=== PATIENT | female | born 1940 | race Caucasian/White ===

== ENCOUNTER 2016-09-11 05:57 | Emergency (ER) | payer MEDICARE ==
[~2016-09-11] VITALS: Ht 157.5 cm; Wt 56.8 kg
[~2016-09-11 05:57] MED LIST: ALBU8.5H3 INH; ASPI-664 PO; ESTR1TAB23 PO; LEVE-5 PO; METO-448 PO; MOME0.24 IH; SUMA100T9 PO
[2016-09-11 06:04] VITALS: Ht 157.5 cm; Wt 56.8 kg
[2016-09-11] MEDS ORDERED: SOD CHLORIDE 0.9% 1,000 ML IV STA (06:21)
[2016-09-11] MEDS ORDERED: ONDANSETRON 4 MG INJ IV STA (06:21)
[2016-09-11 06:57] LABS: ADD SCAN DIFF NO
[2016-09-11 07:02] LABS: BASOPHILS % 0.2 % (0.0-2.0); EOSINOPHILS # 0.1 10^3/ul (0.0-0.5); EOSINOPHILS % 0.4 % (0.0-7.0); HEMATOCRIT 35.2 % (37.0-47.0); HEMOGLOBIN 11.4 g/dl (12.0-16.0); LYMPHOCYTES # 0.9 10^3/ul (0.8-2.9); LYMPHOCYTES % 5.9 % (15.0-51.0); MEAN CORPUSCULAR HEMOGLOBIN 27.8 pg (29.0-33.0); MEAN CORPUSCULAR HGB CONC 32.4 g/dl (32.0-37.0); MEAN CORPUSCULAR VOLUME 85.9 fl (82.0-101.0); MONOCYTE # 0.5 10^3/ul (0.3-0.9); MONOCYTES % 3.6 % (0.0-11.0); NEUTROPHIL # 13.1 10^3/ul (1.6-7.5); NEUTROPHILS % 89.4 % (39.0-77.0); PLATELET COUNT 303 10^3/UL (140-415); RED CELL DISTRIBUTION WIDTH 14.1 % (11.5-14.5); WHITE BLOOD COUNT 14.7 10^3/ul (4.8-10.8)
[2016-09-11 07:14] LABS: ALBUMIN 4.2 g/dl (3.3-4.9); INR 0.89; PT RATIO 0.9
[2016-09-11 07:15] LABS: CHLORIDE 101 mmol/L (97-110); PARTIAL THROMBOPLASTIN TIME 27.9 Sec (25.0-35.0); POTASSIUM 3.7 mmol/L (3.5-5.1); SODIUM 138 mmol/L (135-144)
[2016-09-11 07:17] LABS: ALBUMIN/GLOBULIN RATIO 1.13; ANION GAP 13 (8-16); ASPARTATE AMINO TRANSFERASE 26 IU/L (15-46); BILIRUBIN,INDIRECT 0.4 mg/dl (0-1.1); BILIRUBIN,TOTAL 0.4 mg/dl (0.2-1.3); CARBON DIOXIDE 28 mmol/L (21-31); CREATININE 0.74 mg/dl (0.44-1.00); TOTAL PROTEIN 7.9 g/dl (6.1-8.1)
[2016-09-11 07:18] LABS: ALANINE AMINOTRANSFERASE 24 IU/L (13-69); ALKALINE PHOSPHATASE 95 IU/L (42-121); BLOOD UREA NITROGEN 10 mg/dl (7-20); CALCIUM 9.1 mg/dl (8.4-10.2); GLUCOSE 113 mg/dl (70-220)
[2016-09-11 07:37] LABS: TROPONIN-I < 0.012 ng/ml (0.00-0.12)
--- NOTE | 2016-09-11 07:38 | RADRPT ---
PROCEDURE: CT Brain without contrast. CLINICAL INDICATION: Headache TECHNIQUE: Axial images from the skull base through the vertex without IV contrast. Multiplanar r eformatted images were made. Images were reviewed on a PACS workstation. The CTDIvol is 44.99 mGy and the DLP is 720.23 mGycm. One or more of the following dose reduction techniques were used: auto mated exposure control, adjustment of the mA and/or kV according to patient size, or use of iterativ e reconstruction technique. COMPARISON: 01/02/2015 FINDINGS: Minimal chronic microvascular ischemic change is again seen. There is no evidence for acute territo rial infarction or intracranial hemorrhage. No mass or midline shift is seen. No extraaxial fluid collection is seen. The visualized paranasal sinuses and mastoids are clear. IMPRESSION: Stable minimal chronic microvascular ischemic change. RPTAT: HLBE Physician Andrew Date Time Electronically viewed and signed by Nicolette Kenny Physician on 09/11/2016 07:38 HALIMA/
[2016-09-11 07:46] LABS: ADD UMIC YES; URINE BILIRUBIN (Dip) NEGATIVE (NEGATIVE); URINE BLOOD (Dip) TRACE (NEGATIVE); URINE COLOR LT. YELLOW (YELLOW); URINE GLUCOSE (Dip) NEGATIVE (NEGATIVE); URINE KETONES (Dip) NEGATIVE (NEGATIVE); URINE LEUKOCYTE ESTERASE (Dip) 1+ (NEGATIVE); URINE NITRITE (Dip) NEGATIVE (NEGATIVE); URINE TOTAL PROTEIN (Dip) NEGATIVE (NEGATIVE); URINE UROBILINOGEN (Dip) 0.2 E.U./dL (0.1-1.0)
--- NOTE | 2016-09-11 07:47 | RADRPT ---
PROCEDURE: CT of the abdomen and pelvis without contrast CLINICAL INDICATION: Abdominal Pain. TECHNIQUE: Spiral CT images through the abdomen and pelvis without the use of contrast. The admin istered radiation dose is CTDI 7.67 and DLP 423.64. One or more of the following dose reduction kait hniques were used: automated exposure control, adjustment of the mA and/or kV according to patient s ize, or use of iterative reconstruction technique. COMPARISON: 08/02/2013 FINDINGS: Lack of oral and intravenous contrast somewhat limits evaluation. Bronchiectasis and fibrotic rashid nges of the lung bases are again seen. As before, this is most severe in the right middle lobe with some changes are now seen in the lingula as well. These changes may have progressed slightly. 3 m m right lower lobe lung nodule is stable. Calcified right lower lobe granuloma is again seen. Mild ly distended gallbladder. No pleural effusion. Aortic calcification. The liver, spleen, left adrenal, and pancreas are unremarkable in appearance. Tiny calcification of the right adrenal gland is again seen. Right hydronephrosis is less prominent than on the prior st udy. As before, no definite ureter or bladder stone is seen. The right ureter is less dilated than on the prior study with mild proximal dilatation seen. Left renal cortical atrophy is seen. No le ft hydroureter is seen. No stones are seen in the urinary bladder or left ureter. The urinary blad anais is mildly distended. The uterus again appears to be surgically absent. No adnexal mass is seen .. The appendix is not definitely identified but no pericecal inflammatory process is seen. There i s no evidence for bowel obstruction, free air, or abscess. There is no evidence for diverticulitis. No adenopathy or ascites is seen. Degenerative change of the spine is seen. IMPRESSION: Slight progression of bibasilar bronchiectasis and fibrosis. Stable 3 mm right lower lobe lung nodu le. Calcified right lower lobe granuloma.. Decrease in right hydronephrosis and hydroureter. No definite acute abnormality of the abdomen or p sparkle. RPTAT: HLBE Physician Andrew Date Time Electronically viewed and signed by Physician Andrew on 09/11/2016 07:47 HALIMA/
[2016-09-11] MEDS ORDERED: NITR-58 PO (07:52)
[2016-09-11] MEDS ORDERED: ONDA4TAB14 PO (07:52)
[2016-09-11 07:56] LABS: BACTERIA,URINE FEW; URINE RBCS 0-2 /HPF (0)
[2016-09-11] MEDS ORDERED: ACETAMINOPHEN 325 MG TAB PO ONE (08:00)
[2016-09-11] MEDS ORDERED: DOCU-144 PO (08:51)
--- NOTE | 2016-09-11 09:02 | ERD ---
ER Documentation Chief Complaint Date/Time DATE: 09/11/16 TIME: 09:00 Chief Complaint BIB RA S/P FALL, NEAR SYNCOPAL EPISODE AND DIZZINESS HPI Patient is a 75-year-old female with hypertension and fibromyalgia who presents not feeling well. She was brought in by ambulance. She woke at 3 AM and says that she was not feeling well and "felt hot". She was sweating and had belching at the time. She said that her stomach felt distended and she had nausea but no vomiting. She felt like she did have a bowel movement. She tried to go to the bathroom and felt spinning. She denies any bleeding. She says that her legs buckled underneath her and she fell and hit the back of her head on a dresser. She "passed out". Upon review of old medical record she has had multiple visits to the ER for various complaints. She does have a primary doctor. ROS All systems reviewed and are negative except as per history of present illness. Medications Home Meds Active Scripts Docusate Sodium* (Colace*) 100 Mg Capsule, 100 MG PO TID, #30 CAP Prov:BROWN DEVI MD 09/11/16 Ondansetron (Ondansetron Odt) 4 Mg Tab.rapdis, 4 MG PO Q6H Y for NAUSEA AND/OR VOMITING, #30 TAB Prov:BROWN DEVI MD 09/11/16 Nitrofurantoin Monohyd Macrocr* (Macrobid*) 100 Mg Capsr, 100 MG PO BID for 7 Days, CAP Prov:BROWN DEVI MD 09/11/16 Reported Medications Aspirin* (Aspirin* EC) 81 Mg Tablet.dr, 81 MG PO DAILY, TAB 01/01/15 Mometasone Furoate* (Asmanex*) 220 Mcg/Inh - 0.24 Gm Aer.pow.ba, 1 PUFF IH HS, INH 12/31/14 Albuterol Sulfate* (Proair HFA*) 8.5 Gm Hfa.aer.ad, 2 PUFF INH Q4H Y for WHEEZING AND SOB, INH 12/31/14 Sumatriptan Succinate* (Imitrex*) 100 Mg Tablet, 100 MG PO BID Y for MIGRAINE, TAB May repeat after 2 hours if needed; MAX 200 mg/24 hours 12/31/14 Estradiol* (Estrace*) 1 Mg Tablet, 0.5 MG PO DAILY, TAB 12/31/14 Metoprolol Tartrate* (Lopressor*) 25 Mg Tab, 12.5 MG PO BID 08/03/13 Discontinued Scripts Levetiracetam* (Keppra*) 500 Mg Tab, 500 MG PO BID for 30 Days, 2 Refills Prov:SERAFIN KERR. 01/02/15 Allergies Allergies: Coded Allergies: Penicillins (Verified Allergy, Unknown, 12/31/14) Sulfa (Sulfonamide Antibiotics) (Verified Allergy, Unknown, 12/31/14) PMhx/Soc History of Surgery: Yes (AMANDA w/ BSO, appy, , colonoscopy,bronchoscopy) Anesthesia Reaction: No Hx Neurological Disorder: No Hx Respiratory Disorders: Yes (Asthma, Bronchitis) Hx Cardiac Disorders: Yes (Angiogram x2 negative results) Hx Psychiatric Problems: No Hx Miscellaneous Medical Probl: Yes (asthma,chronic lung nodule,fibromyalgia, diverticulosis) Hx Alcohol Use: No Hx Substance Use: No Hx Tobacco Use: No Smoking Status: Never smoker FmHx Family History: No diabetes Physical Exam Vitals Vital Signs Date Time Temp Pulse Resp B/P Pulse Ox O2 Delivery O2 Flow Rate FiO2 09/11/16 06:04 99.0 97 15 129/62 100 Physical Exam Const: No acute distress Head: Atraumatic Eyes: Normal Conjunctiva ENT: Normal External Ears, Nose and Mouth. Neck: Full range of motion..~ No meningismus. Resp: Clear to auscultation bilaterally Cardio: Regular rate and rhythm, no murmurs Abd: Soft, non tender, non distended. Normal bowel sounds Skin: No petechiae or rashes Back: No midline or flank tenderness Ext: No cyanosis, or edema Neur: Awake and alert Psych: Normal Mood and Affect Result Diagram: 09/11/16 0645 09/11/16 0645 Results 24 hrs Laboratory Tests Test 09/11/16 06:45 09/11/16 07:17 White Blood Count 14.710^3/ul Red Blood Count 4.1010^6/ul Hemoglobin 11.4g/dl Hematocrit 35.2% Mean Corpuscular Volume 85.9fl Mean Corpuscular Hemoglobin 27.8pg Mean Corpuscular Hemoglobin Concent 32.4g/dl Red Cell Distribution Width 14.1% Platelet Count 54101^3/UL Mean Platelet Volume 9.0fl Neutrophils % 89.4% Lymphocytes % 5.9% Monocytes % 3.6% Eosinophils % 0.4% Basophils % 0.2% Nucleated Red Blood Cells % 0.0/100WBC Neutrophils # 13.110^3/ul Lymphocytes # 0.910^3/ul Monocytes # 0.510^3/ul Eosinophils # 0.110^3/ul Basophils # 0.010^3/ul Nucleated Red Blood Cells # 0.010^3/ul Prothrombin Time 12.0Sec Prothrombin Time Ratio 0.9 INR International Normalized Ratio 0.89 Activated Partial Thromboplast Time 27.9Sec Sodium Level 138mmol/L Potassium Level 3.7mmol/L Chloride Level 101mmol/L Carbon Dioxide Level 28mmol/L Anion Gap 13 Blood Urea Nitrogen 10mg/dl Creatinine 0.74mg/dl Glucose Level 113mg/dl Calcium Level 9.1mg/dl Total Bilirubin 0.4mg/dl Direct Bilirubin 0.00mg/dl Indirect Bilirubin 0.4mg/dl Aspartate Amino Transf (AST/SGOT) 26IU/L Alanine Aminotransferase (ALT/SGPT) 24IU/L Alkaline Phosphatase 95IU/L Troponin I < 0.012ng/ml Total Protein 7.9g/dl Albumin 4.2g/dl Globulin 3.70g/dl Albumin/Globulin Ratio 1.13 Lipase 71U/L Urine Color LT. YELLOW Urine Clarity CLEAR Urine pH 7.5 Urine Specific [place] 1.015 Urine Ketones NEGATIVE Urine Nitrite NEGATIVE Urine Bilirubin NEGATIVE Urine Urobilinogen 0.2 E.U./dL Urine Leukocyte Esterase 1+ Urine Microscopic RBC 0-2/HPF Urine Microscopic WBC 0-2/HPF Urine Epithelial Cells FEW Urine Bacteria FEW Urine Hemoglobin TRACE Urine Glucose NEGATIVE% Urine Total Protein NEGATIVE Current Medications Medications (Trade) Dose Ordered Sig/Jacqueline Route PRN Reason Start Time Stop Time Status Last Admin Dose Admin Sodium Chloride (NS) 1,000 ml @ 1,000 mls/hr Q1H STAT IV 09/11/16 06:21 09/11/16 07:20 DC 09/11/16 07:44 Ondansetron HCl (Zofran Inj) 4 mg ONCE STAT IV 09/11/16 06:21 09/11/16 06:23 DC 09/11/16 07:43 Acetaminophen (Tylenol Tab) 650 mg ONCE ONCE PO 09/11/16 08:00 09/11/16 08:01 DC 09/11/16 08:01 Procedures/MDM EKG read by me: Rate/Rhythm: Regular rate and rhythm at a normal rate Intervals: Normal Impression: No evidence of ischemia or arrhythmia CT brain shows no skull fracture or intracranial hemorrhage per radiology. CT abdomen pelvis shows no surgical process per radiology. Patient is a 75-year-old female who presents with multiple complaints. She was found to have acute cystitis. She has anemia but does not require transfusion. At this point I doubt serious bacterial infection such as appendicitis, cholecystitis, pancreatitis, or bowel obstruction. I believe outpatient management is appropriate. I doubt serious cause of her syncope such as ventricular fibrillation or ventricular tachycardia. The patient would prefer to go home and I do believe that outpatient management is appropriate at this time. However the patient will need close follow-up with her primary doctor. I provided her with copies of laboratory studies and imaging tests prior to discharge. Departure Diagnosis: Primary Impression: Cystitis Additional Impressions: Syncope Syncope type: unspecified Qualified Code: R55 - Syncope, unspecified syncope type Anemia Anemia type: unspecified type Qualified Code: D64.9 - Anemia, unspecified type Condition: Fair Patient Instructions: Causes of Syncope, Cystitis Referrals: STEPHANIE VALDIVIA MD Additional Instructions: Call your primary care doctor TOMORROW for an appointment during the next 1-2 days.See the doctor sooner or return here if your condition worsens before your appointment time. BROWN DEVI MD Sep 11, 2016 09:02
[2016-09-11 09:09] VITALS: BP 138/66; PULSE 90; RESP 18
== END 2016-09-11 09:10 | disposition home or self-care (01) ==
LOC: E/R 05:57
DX: N30.90 Cystitis, unspecified without hematuria (principal); D64.9 Anemia, unspecified; J45.909 Unspecified asthma, uncomplicated; I10 Essential (primary) hypertension; Z79.82 Long term (current) use of aspirin
CPT/HCPCS: 70450; 74176; 80053; 81001; 81003; 83690; 84484; 85025; 85610; 85730; 93005; J2405; J7030; 36415; 96374

== ENCOUNTER → 2017-02-24 | Outpatient (CLI) | payer MEDICARE ==
[~2017-02-24] MED LIST changes: +DOCU-144 PO; -LEVE-5 PO; +NITR-58 PO; +ONDA4TAB14 PO
--- NOTE | 2017-02-24 18:37 | RADRPT ---
PROCEDURE: US left lower extremity veins. CLINICAL INDICATION: Left leg pain and swelling. TECHNIQUE: Multiple longitudinal and transverse images of the left lower extremity veins were obta ined with wood scale and color Doppler imaging. The common femoral vein, femoral vein, and popliteal vein were evaluated. 2D grayscale measurements with compression sonography, pulsed Doppler, color D oppler, and pulsed Doppler with augmentation. COMPARISON: No prior studies are available for comparison. FINDINGS: The left common femoral, femoral and popliteal veins are normally compressible throughout. Color fl ow demonstrates normal filling of the vessels. Normal waveforms are visualized and there is normal response to augmentation. IMPRESSION: 1. No evidence of deep vein thrombosis involving the left lower extremity. RPTAT: QQ .Andrew Kamara MD, MD Date Time Electronically viewed and signed by .Andrew Kamara MD, on 02/24/2017 18:36 .R/
== END | disposition home or self-care (01) ==
LOC: VAS 16:55
PROVIDERS: ATTEND Internal Medicine
DX: I82.4Z2 Acute embolism and thrombosis of unspecified deep veins of left distal lower extremity (principal)
CPT/HCPCS: 93971

== ENCOUNTER → 2017-03-17 | Outpatient (CLI) | payer MEDICARE ==
--- NOTE | 2017-03-17 16:53 | RADRPT ---
PROCEDURE: XR Left Tibia and Fibula. CLINICAL INDICATION: Left lower leg pain. TECHNIQUE: Two views. Frontal and lateral. COMPARISON: No prior studies are available for comparison. FINDINGS: There is no fracture or dislocation. The soft tissues are normal. Articular surfaces are intact. There is no lytic or blastic lesion. There is no radiopaque foreign body. IMPRESSION: 1. Normal images of the left tibia and fibula. RPTAT: QQ .Andrew Kamara MD, MD Date Time Electronically viewed and signed by .Andrew Kamara MD, on 03/17/2017 16:52 .R/
--- NOTE | 2017-03-17 16:53 | RADRPT ---
PROCEDURE: Left knee radiographs. CLINICAL INDICATION: Left knee pain. TECHNIQUE: Three views. Weight bearing. Frontal, lateral, and oblique. COMPARISON: No prior studies are available for comparison. FINDINGS: There is no fracture or dislocation. The soft tissues are normal. Articular surfaces are intact. There is no lytic or blastic lesion. There is no radiopaque foreign body. IMPRESSION: 1. Normal images of the left knee. RPTAT: QQ .Andrew Kamara MD, MD Date Time Electronically viewed and signed by .Andrew Kamara MD, on 03/17/2017 16:53 .R/
--- NOTE | 2017-03-17 16:54 | RADRPT ---
PROCEDURE: XR Left Hip. CLINICAL INDICATION: Left hip pain. TECHNIQUE: Two views. Frontal and lateral. COMPARISON: No prior studies are available for comparison. FINDINGS: There is no fracture or dislocation. The soft tissues are normal. Articular surfaces are intact. There is no lytic or blastic lesion. There is no radiopaque foreign body. IMPRESSION: 1. Normal images of the left hip. RPTAT: QQ .Andrew Kamara MD, MD Date Time Electronically viewed and signed by .Andrew Kamara MD, on 03/17/2017 16:53 .R/
== END | disposition home or self-care (01) ==
LOC: RAD 15:12
PROVIDERS: ATTEND Internal Medicine
DX: M17.12 Unilateral primary osteoarthritis, left knee (principal); M16.12 Unilateral primary osteoarthritis, left hip
CPT/HCPCS: 73510; 73562; 73590

== ENCOUNTER 2017-10-13 14:38 | Inpatient (IN) | END 2017-10-14 19:25 | disposition home or self-care (01) | DRG 191 ==